=== PATIENT | male | born 1985 | race Caucasian/White ===

== ENCOUNTER 2017-03-30 14:02 | Inpatient (IN) | payer OTHER ==
[~2017-03-30] VITALS: Ht 177.8 cm; Wt 71.9 kg
[~2017-03-30 14:02] MED LIST: HYDROXYZINE PAM50 MG PO; ONDANSETRON4 MG PO; SINEMET 25-100M1 TAB PO
[2017-03-30 14:28] VITALS: BP 120/74
[2017-03-30 14:53] LABS: BILIRUBIN NEGATIVE (NEGATIVE); BLOOD NEGATIVE (NEGATIVE); CLARITY SL CLOUDY (CLEAR); COLOR YELLOW (YELLOW); GLUCOSE NEGATIVE (NEGATIVE); KETONE NEGATIVE (NEGATIVE); LEUKO ESTERASE NEGATIVE (NEGATIVE); NITRITE NEGATIVE (NEGATIVE); PH 7.5 (5.0-9.0); UROBILINOGEN 0.2 E.U./dl (0.2-1.0)
[2017-03-30 15:01] LABS: BACTERIA 4+; EPITHELIAL CELLS 0-2
[2017-03-30 15:02] LABS: URINE AMPHETAMINES > 1000 (1000ng/ml); URINE BARBITURATES < 200 (200ng/ml); URINE BENZODIAZEPINES < 200 (200ng/ml); URINE CANNABINOIDS (THC) > 50 (50ng/ml); URINE COCAINE < 300 (300ng/ml); URINE METHADONE < 300 (300ng/ml); URINE OPIATES < 300 (300ng/ml)
[2017-03-30 15:03] LABS: URINE PHENCYCLIDINE < 25 (25ng/ml)
[2017-03-30 15:06] LABS: BASO # 0.1 10*3/uL (0.0-0.1); BASO % 0.7 % (0.0-1.0); EOS # 0.4 10*3/uL (0.0-0.4); EOS % 5.1 % (1.0-4.0); HEMATOCRIT 38.9 % (42.0-52.0); LYMPH # 2.7 10*3/uL (1.3-4.4); LYMPH % 34.9 % (27.0-41.0); MEAN CELL VOLUME 83.7 fl (80.0-94.0); MEAN CORPUSCULAR HGB CONC 33.4 g/dl (33.0-37.0); MEAN PLATELET VOLUME 9.6 fl (9.6-12.3); MONO # 0.6 10*3/uL (0.1-1.0); MONO % 8.2 % (3.0-9.0); NEUT # 3.9 10*3/uL (2.3-7.9); PLATELET COUNT AUTOMATED 238 10*3/uL (130-400); RED BLOOD COUNT 4.65 10*6/uL (4.50-5.90); RED CELL DISTRI WIDTH 13.4 % (0-14.5); WHITE BLOOD COUNT 7.6 10*3/uL (4.8-10.8)
--- NOTE | 2017-03-30 15:17 | NUR ---
THE PT WAS GIVEN ICE CHIPS
[2017-03-30 15:20] LABS: ACETAMINOPHEN (TYLENOL) < 2.0 ug/ml (10-30); ALBUMIN 3.7 gm/dl (3.1-4.5); ALKALINE PHOSPHATASE 79 U/L (45-117); BUN 19 mg/dl (7-24); CHLORIDE 104 mmol/L (98-107); CREATININE 0.99 mg/dL (0.70-1.30); POTASSIUM 3.8 mmol/L (3.5-5.1); SGOT/AST 21 IU/L (3-35); SGPT/ALT 29 U/L (12-78); SODIUM 138 mmol/L (136-145); TOTAL PROTEIN 7.7 gm/dL (6.4-8.2)
[2017-03-30 15:26] LABS: ETHYL ALCOHOL < 3.0 mg/dl (<3)
[2017-03-30 15:57] VITALS: BP 120/74
[2017-03-30 16:00] VITALS: BP 117/70
--- NOTE | 2017-03-30 18:58 | NUR ---
31 year old MALE admitted to room # 532 for stabilization. 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 Compliant with admission procedure. Patient denies any anxiety, but is unable to sit still, taps toes to floor continuously, looks about room, unable to focus eyes on nurse during interview. See assessment forms for additional information about patient status.
[2017-03-30 20:00] VITALS: BP 129/69
--- NOTE | 2017-03-30 20:00 | NUR ---
PT RESTING IN BED. NO DISTRESS NOTED. PT HAS FLAT AFFECT. STATES THE HE DOES NOT WANT BOTHERED THE REST OF THE NIGHT. CALL LIGHT REINFORCED.
[2017-03-31] VITALS: BP 122/64
--- NOTE | 2017-03-31 04:00 | NUR ---
PT REFUSES [id number] VITALS
--- NOTE | 2017-03-31 07:55 | NUR ---
PT IN BED, LAYING DOWN. EYES CLOSED. RESTING COMFORTABLY. LIGHTS OFF. LUNGS CLEAR. NO EDEMA NOTED. TOLERATED MEDICATIONS WELL. WILL CONTINUE TO MONITOR.
[2017-03-31 08:00] VITALS: BP 86/44
--- NOTE | 2017-03-31 08:08 | NUR ---
AIDE REPORTED LOW BP OF 86/44. THIS NURSE WENT TO TAKE THE BP MANUALLY AND PT REFUSED AFTER THIS NURSE EXPLAINED THE IMPORTANCE OF IT. PT REFUSED AGAIN AND BECAME AGITATED. NO BRADYCARDIA SYMPTOMS NOTED. RESPIRATIONS ARE EASY AND UNLABORED. NO SWEATING NOTED. PT IS IN BED, LAYING DOWN ON LEFT SIDE. LIGHTS OFF WITH WINDOWS OPEN FOR LIGHT. TV OFF. WILL CONTINUE TO MONITOR.
--- NOTE | 2017-03-31 08:34 | NUR ---
PATIENT HAS INQUIRED ABOUT NEW VISION SERVICES WITH [facility] STAFF. PATIENT WILL BE A NEW VISION PATIENT. KRISH LAIRD B.A. CORRECTIONAL PROGRAM OFFICER
--- NOTE | 2017-03-31 09:19 | NUR ---
PT IN BED, EATIGN BREAKFAST. REFUSED ALL 1000 MEDICATIONS. THIS NURSE EXPLAINED THE IMPORTANCE OF THEM. PT STILL REFUSED AND BECAME SLIGHTLY AGITATED.
--- NOTE | 2017-03-31 12:23 | NUR ---
PT LEFT FLOOR AFTER THIS NURSE TALKED TO HIM THIS MORNING ABOUT NOT LEAVING THE FLOOR PER PROGRAM PROTOCOL. NOTIFIED.
--- NOTE | 2017-03-31 12:27 | NUR ---
DR. BRAVO NOTIFIED THE PT HAS RETURNED TO HIS ROOM. AWAITING CALL BACK WITH ORDERS.
--- NOTE | 2017-03-31 12:30 | NUR ---
PER /LIZET PT IS TO BE DISCHARGED AMA.
--- NOTE | 2017-03-31 12:39 | NUR ---
SECURITY IN WITH PT. PT GATHERING BELONGINGS. PT IS AGITATED, IRRITATED, AND ANNOYED. SECURITY HAVING NO ISSUES OR PROBLEMS WITH PT. PT REFUSED TO SIGN AMA PAPERWORK. WITNESSED BY MYSELF AND KAE ZHU RN.
--- NOTE | 2017-03-31 12:45 | NUR ---
SECURITY ESCORTING PT OFF FLOOR AND OUT OF BUILDING NOW.
--- NOTE | 2017-03-31 12:49 | NUR ---
Patient signed out AMA. Patient encouraged to stay and advised of possible consequences of premature discharge. Physician DR. ALFARO/ and computer analyst supervisor MILLIE BERMEO RN notified. Patient instructed what to do regarding care post-departure from the hospital; emergency phone numbers provided. Patent was accompanied by SECURITY. PRASHANT LORENZO
== END 2017-03-31 12:49 | disposition left against medical advice (07) | DRG 894 ==
LOC: ED 14:02 → EDHOLD 14:57 → 5E 14:57
PROVIDERS: Internal Medicine Nephrology; Nurse Practitioner Family; ADMIT Internal Medicine
DX: F11.23 Opioid dependence with withdrawal (principal); D72.1 Eosinophilia; D64.9 Anemia, unspecified; F12.10 Cannabis abuse, uncomplicated; F15.10 Other stimulant abuse, uncomplicated; G47.00 Insomnia, unspecified; Z53.21 Procedure and treatment not carried out due to patient leaving prior to being seen by health care provider; B18.2 Chronic viral hepatitis C; F14.10 Cocaine abuse, uncomplicated; Z72.0 Tobacco use; Z71.6 Tobacco abuse counseling

== ENCOUNTER 2019-03-02 14:29 | Inpatient (IN) | payer OTHER ==
[~2019-03-02] VITALS: Ht 177.8 cm; Wt 67.4 kg
[2019-03-02 15:58] VITALS: BP 116/68
--- NOTE | 2019-03-02 15:58 | NUR ---
A 33, admitted to , under the services of PAOLA Vasques DO with a diagnosis of OPIATE WITHDRAWAL. Chief complaint is WITHDRAWAL. Patient arrived via from [place]. Monitor applied. Initial assessment completed. Vital signs taken and recorded. PAOLA VASQUES DO notified of admission to the unit. Orders received. See assessment for past medical history, medications and allergies. Patient and/or family oriented to unit. [address] visitation policy reviewed. Clothing/patient valuable form completed. FILI GRULLON
--- NOTE | 2019-03-02 16:10 | NUR ---
PT UNABLE TO URINATE FOR DRUG TEST AT THIS TIME. UNABLE TO GIVE SUBUTEX AT THIS TIME.
--- NOTE | 2019-03-02 16:30 | NUR ---
DR. GRAYSON NOTIFIED OF PT NOT TAKING HOME MEDICATIONS. ALSO NOTIFIED THAT PT DID NOT WANT IV. NO OTHER ORDERS AT THIS TIME.
--- NOTE | 2019-03-02 17:50 | NUR ---
PT STILL UNABLE TO URINATE. STATES THAT HE IS DRINKING WATER TO TRY. STILL UNABLE TO GIVE PT MEDICATIONS AT THIS TIME.
--- NOTE | 2019-03-02 18:31 | NUR ---
PT REFUSING LAB DRAWS AT THIS TIME.
[2019-03-02 18:41] LABS: BILIRUBIN NEGATIVE (NEGATIVE); BLOOD NEGATIVE (NEGATIVE); CLARITY CLEAR (CLEAR); COLOR YELLOW (YELLOW); GLUCOSE NEGATIVE (NEGATIVE); KETONE NEGATIVE (NEGATIVE); LEUKO ESTERASE NEGATIVE (NEGATIVE); NITRITE NEGATIVE (NEGATIVE); UROBILINOGEN 0.2 E.U./dl (0.2-1.0)
[2019-03-02 18:46] LABS: BACTERIA TRACE; WBC 0-2 wbc/hpf (0-5)
[2019-03-02 18:49] LABS: URINE AMPHETAMINES > 1000 (1000ng/ml); URINE BARBITURATES < 200 (200ng/ml); URINE BENZODIAZEPINES < 200 (200ng/ml); URINE CANNABINOIDS (THC) < 50 (50ng/ml); URINE COCAINE < 300 (300ng/ml); URINE METHADONE < 300 (300ng/ml); URINE OPIATES > 300 (300ng/ml)
[2019-03-02 18:50] LABS: URINE PHENCYCLIDINE < 25 (25ng/ml)
--- NOTE | 2019-03-02 19:00 | NUR ---
PT IS ASLEEP IN BED AT THIS TIME. THERE ARE NO S/S OF DISTRESS NOTED. RESPS ARE EASY AND NONLABORED. BED IS IN LOWEST POSITION, CALL LIGHT IS WITHIN REACH. WILL CONTINUE TO MONITOR.
[2019-03-02 20:00] VITALS: BP 123/69
[2019-03-03] VITALS: BP 120/69
[2019-03-03 08:00] VITALS: BP 110/60
[2019-03-03 16:00] VITALS: BP 108/74
[2019-03-04] VITALS: BP 115/60
--- NOTE | 2019-03-04 00:58 | NUR ---
24 HR CHART CHECK COMPLETE.
[2019-03-04 08:00] VITALS: BP 98/54
--- NOTE | 2019-03-04 09:38 | NUR ---
PT STATES NO NEEDS AT THIS TIME.
--- NOTE | 2019-03-04 13:40 | NUR ---
PT REQUESTING TO LEAVE AMA, DISCUSS RISKS, PT SIGNED OUT AMA
--- NOTE | 2019-03-04 13:46 | NUR ---
DR. GRAYSON INFORMED THAT PATIENT LEFT AMA
== END 2019-03-04 13:53 | disposition left against medical advice (07) | DRG 770 ==
LOC: EDHOLD 14:29 → 5E 14:51
PROVIDERS: Internal Medicine; ADMIT Family Medicine
DX: F11.23 Opioid dependence with withdrawal (principal); F41.9 Anxiety disorder, unspecified; M79.10 Myalgia, unspecified site; B18.2 Chronic viral hepatitis C; F12.10 Cannabis abuse, uncomplicated; Z53.29 Procedure and treatment not carried out because of patient's decision for other reasons; R06.82 Tachypnea, not elsewhere classified; R00.1 Bradycardia, unspecified; R51 Headache; F17.210 Nicotine dependence, cigarettes, uncomplicated; Z71.6 Tobacco abuse counseling